=== PATIENT | female | born 1950 | race Two or more races ===

== ENCOUNTER 2020-11-25 05:25 | Day surgery (SDC) | payer OTHER ==
[~2020-11-25 05:25] MED LIST: COZAAR100 MG PO; PREVASTATIN PO; TOPROL XL25 M1 PO; WELLBUTRIN SR100 MG PO
[2020-11-25] MEDS ORDERED: MACROBID 100 M100 MG PO (09:01)
[2020-11-25] MEDS ORDERED: CODE1TAB37 PO (09:03)
== END 2020-11-25 11:50 | disposition home or self-care (01) ==
LOC: CIR.AMB 05:25
PROVIDERS: ATTEND Obstetrics & Gynecology Gynecology
DX: N39.3 Stress incontinence (female) (male) (principal); Z20.822 Contact with and (suspected) exposure to COVID-19
CPT/HCPCS: 57288; C1771